=== PATIENT | male | born 1960 | race Two or more races ===

== ENCOUNTER 2024-05-09 19:33 | Emergency (ER) | payer OTHER ==
[~2024-05-09] VITALS: Ht 157.5 cm; Wt 93.2 kg
[2024-05-09 20:34] LABS: Basophils # (auto) 0.1 10 ^3/uL (0-0.2); Basophils % (auto) 0.8 % (0.0-2.0); Eosinophils # (auto) 0.3 10 ^3/uL (0-0.8); Eosinophils % (auto) 3.5 % (0.0-7.0); Hematocrit 49.3 % (41.0-53.0); Hemoglobin 17.7 g/dL (13.5-17.5); Lymphocytes # (auto) 1.9 10 ^3/uL (0.4-5.4); Lymphocytes % (auto) 20.5 % (10.0-50.0); Mean Corpuscular Hemoglobin 34.6 pg (28.0-32.0); Mean Corpuscular Volume 96.1 fL (80.0-100.0); Monocytes # (auto) 0.7 10 ^3/uL (0-1.3); Neutrophils # (auto) 6.2 10 ^3/uL (1.6-8.6); Neutrophils % (auto) 67.2 % (37.0-80.0); Nucleated Red Blood Cells % 0.1 %; Platelet Count (auto) 153 10^3/uL (140-450); Red Blood Cells 5.12 10^6/uL (4.5-5.90); Red Cell Distribution Width 14.3 % (11.8-14.3); White Blood Cell 9.2 10^3/uL (4.4-10.8)
[2024-05-09 20:44] LABS: Chloride 108 mmol/L (98-107); Potassium 3.5 mmol/L (3.5-5.1); Sodium 141 mmol/L (136-145)
[2024-05-09 20:45] LABS: Anion Gap 10 (5-15); Calcium 9.3 mg/dL (8.7-10.4); Carbon Dioxide 23 mmol/L (20-31)
[2024-05-09 20:50] LABS: BUN/Creatinine Ratio 8.7 (10.0-20.0); Blood Alcohol 41.6 mg/dL (<10); Blood Urea Nitrogen 9 mg/dL (9-23); Glucose 100 mg/dL (74-106)
[2024-05-10] MEDS: PANTOPRAZOLE 40 MG/10 ML VIAL INJ IV ONE (00:26)
[2024-05-10] MEDS: ONDANSETRON HCL 4 MG/2 ML VIAL IV ONE (00:27)
[2024-05-10] MEDS: SODIUM CHLORIDE 0.9% 1,000 ML IV ONE (00:27)
[2024-05-10 00:30] VITALS: BP 148/98; TEMP 98.4
[2024-05-10 00:45] VITALS: PULSE 66; RESP 18; O2SAT 93
== END 2024-05-10 01:44 | disposition home or self-care (01) ==
LOC: ER 19:33
DX: S00.81XA Abrasion of other part of head, initial encounter (principal); M25.572 Pain in left ankle and joints of left foot; R55 Syncope and collapse; R05.9 Cough, unspecified; F10.120 Alcohol abuse with intoxication, uncomplicated; W18.39XA Other fall on same level, initial encounter; Y93.89 Activity, other specified; Y92.89 Other specified places as the place of occurrence of the external cause; Y99.8 Other external cause status
CPT/HCPCS: 36415; 70450; 71046; 80048; 80320; 84484; 85025; 93005; 96361; 96374; 96375; 99285; J2405; J2470; J7030